=== PATIENT | male | born 1955 | race Caucasian/White ===

== ENCOUNTER 2018-06-08 14:12 | Emergency (ER) | payer OTHER ==
[~2018-06-08] VITALS: Ht 188 cm; Wt 113.4 kg
[~2018-06-08 14:12] MED LIST: CARDURA1 MG; CLEOCIN HCL300 MG PO; COUMADIN 3 MG TA3 MG PO; LABETALOL 100100 MG; LOPERAMIDE 2 MG2 M1; VITAMIN D1000 UNI1 PO
[2018-06-08 14:53] LABS: INR 1.6
[2018-06-08 15:56] VITALS: BP 155/86
== END 2018-06-08 15:58 | disposition home or self-care (01) ==
LOC: ER 14:12
PROVIDERS: Physician Assistant
DX: R79.1 Abnormal coagulation profile (principal); Z79.01 Long term (current) use of anticoagulants; Z88.6 Allergy status to analgesic agent; Z88.0 Allergy status to penicillin; Z88.1 Allergy status to other antibiotic agents; Z86.718 Personal history of other venous thrombosis and embolism; Z85.038 Personal history of other malignant neoplasm of large intestine

== ENCOUNTER 2020-01-31 02:27 | Emergency (ER) | payer OTHER ==
[~2020-01-31] VITALS: Ht 190.5 cm; Wt 122.5 kg
[~2020-01-31 02:27] MED LIST changes: -CARDURA1 MG; +CARDURA1 MG PO; -COUMADIN 3 MG TA3 MG PO; +LABETALOL 100 MG PO; -LABETALOL 100100 MG; +WARFARIN SODIUM10 MG PO
[2020-01-31 03:19] LABS: HEMATOCRIT 42.4 % (42.0-52.0); HEMOGLOBIN 14.5 gm/dL (14.0-18.0); MCH 31.6 pg (26.0-34.0); MCHC 34.1 g/dL (28.0-37.0); MCV 92.7 fL (80.0-100.0); RBC 4.57 mil/uL (4.50-6.00); RDW 13.5 % (10.5-14.5); WBC 6.3 thou/uL (4.0-11.0)
[2020-01-31 03:33] LABS: CALCIUM 8.9 mg/dL (8.5-10.1)
[2020-01-31 03:36] LABS: PROTIME 61.1 Seconds (9.3-11.4)
[2020-01-31 03:49] LABS: INR 5.9
[2020-01-31 04:28] VITALS: BP 122/83
== END 2020-01-31 04:28 | disposition home or self-care (01) ==
LOC: ER 02:27
PROVIDERS: Emergency Medicine
DX: R79.1 Abnormal coagulation profile (principal); I10 Essential (primary) hypertension; I48.91 Unspecified atrial fibrillation; Z79.01 Long term (current) use of anticoagulants; Z79.899 Other long term (current) drug therapy; Z88.0 Allergy status to penicillin; Z88.1 Allergy status to other antibiotic agents